=== PATIENT | male | born 1990 | race Caucasian/White ===

== ENCOUNTER 2021-03-23 20:40 | Emergency (ER) | payer BC, OTHER ==
[~2021-03-23] VITALS: Ht 170.2 cm; Wt 96.0 kg
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
[2021-03-23] MEDS ORDERED: KETOROLAC 30 MG/1 ML ONE (21:57)
[2021-03-23] MEDS ORDERED: DIAZEPAM 5 MG TABLET ONE (21:57)
[2021-03-23] MEDS ORDERED: LIDODERM 5% PATCH TD ONE ×2 (21:57→22:00)
[2021-03-23] MEDS ORDERED: KETOROLAC 30 MG/1 ML IM ONE (22:00)
[2021-03-23] MEDS ORDERED: DIAZEPAM 5 MG TABLET PO ONE (22:00)
[2021-03-23 22:44] VITALS: BP 136/84
== END 2021-03-23 22:46 | disposition home or self-care (01) ==
LOC: ED 21:37
DX: S13.9XXA Sprain of joints and ligaments of unspecified parts of neck, initial encounter (principal); S23.9XXA Sprain of unspecified parts of thorax, initial encounter; S33.5XXA Sprain of ligaments of lumbar spine, initial encounter; F17.200 Nicotine dependence, unspecified, uncomplicated; V49.49XA Driver injured in collision with other motor vehicles in traffic accident, initial encounter; Y93.89 Activity, other specified; Y92.009 Unspecified place in unspecified non-institutional (private) residence as the place of occurrence of the external cause; Y99.8 Other external cause status
CPT/HCPCS: 72072; 72110; 96372; 99284; J1885

== ENCOUNTER → 2021-03-26 | Outpatient (CLI) | payer BC, OTHER | END | disposition home or self-care (01) | LOC: CFH 11:15 | PROVIDERS: ATTEND Internal Medicine | DX: M54.2 Cervicalgia (principal); M54.9 Dorsalgia, unspecified; V89.2XXS Person injured in unspecified motor-vehicle accident, traffic, sequela | CPT/HCPCS: 72050; 72190 ==